=== PATIENT | female | born 1995 | race Caucasian/White ===

== ENCOUNTER 2020-07-01 23:14 | Emergency (ER) | payer OTHER ==
[~2020-07-01] VITALS: Ht 157.5 cm; Wt 72.6 kg
[2020-07-01 23:22] VITALS: BP 129/85; Ht 157.5 cm; Wt 72.6 kg
== END 2020-07-02 00:11 | disposition home or self-care (01) ==
LOC: ED 23:14
DX: N10 Acute pyelonephritis (principal); Z87.442 Personal history of urinary calculi

== ENCOUNTER 2020-07-08 18:05 | Emergency (ER) | payer OTHER ==
[~2020-07-08] VITALS: Ht 157.5 cm; Wt 76.7 kg
[2020-07-08 18:50] VITALS: Ht 157.5 cm; Wt 76.7 kg
[2020-07-08 21:43] VITALS: BP 132/85
== END 2020-07-08 21:18 | disposition home or self-care (01) ==
LOC: ED 18:05
DX: N39.0 Urinary tract infection, site not specified (principal); Z87.442 Personal history of urinary calculi